=== PATIENT | female | born 1990 | race Caucasian/White ===

== ENCOUNTER 2023-04-07 16:02 | Emergency (ER) | payer OTHER, SELFPAY ==
[2023-04-07 16:21] VITALS: BP 125/75; PULSE 96; RESP 20; TEMP 36.7; O2SAT 96; BMI 35.6
--- NOTE | 2023-04-07 18:29 | ED_ITS ---
Documented by User: Sherry Shaffer 04/07/23 21:01 HPI - Female Genitourinary General Chief complaint: Urogenital-Female Stated complaint: UTI Time Seen by Provider: 04/07/23 16:36 Source: patient Mode of arrival: walk-in Limitations: no limitations History of Present Illness HPI Narrative: 33 year old female presents to the ED for vaginal irritation. States her sexual partner has been having penile discharge. Pt denies fever, chills, abd pain. Denies vaginal discharge, dysuria, vaginal lesions/rash. Denies pain. Related Data Home Medications Medication Instructions Recorded Confirmed No Known Home Medications 04/07/23 04/07/23 Allergies Allergy/AdvReac Type Severity Reaction Status Date / Time No Known Drug Allergies Allergy Verified 04/07/23 16:20 Review of Systems ROS Constitutional Denies: fever or chills Gastrointestinal Denies: abdominal pain, nausea or vomiting Genitourinary Reports: other (vaginal irritation); Denies: painful urination, urinary frequency, urinary urgency, blood in urine, pelvic pain, vaginal bleeding, vaginal discharge, genital lesion, genital itching or vaginal odor Musculoskeletal Denies: back pain Integumentary/Breast Denies: rash or itching PFSH PFSH Social History Smoking status: Heavy tobacco smoker Exam Constitutional Vital Signs, click to edit/add: Last Vital Signs Temp 98.1 F 04/07/23 16:21 Pulse 96 H 04/07/23 16:21 Resp 20 04/07/23 16:21 BP 125/75 04/07/23 16:21 Pulse Ox 96 04/07/23 16:21 O2 Del Method Room Air 04/07/23 16:21 Common normals: no apparent distress and oriented x3 Eye Common normals: conjunctivae normal and no scleral icterus Neck & C-Spine Common normals: supple Chest Chest: symmetrical chest wall rise Respiratory Effort & inspection: able to speak in complete sentences and symmetric chest movement GI Common normals: Normal to inspection, nondistended, normoactive bowel sounds present External Female Exam: normal appearance of the urethra Speculum exam - vagina: vaginal discharge (Minimal, white); no vaginal erythema, no foreign body in vagina, no vaginal lesion, no vaginal bleeding and no vaginal tenderness Speculum exam - cervix: no cervical tenderness Bimanual exam- vagina & uterus: no cervical motion tenderness 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 Neuro Common normals: oriented x3 Sensorium/orientation: awake and alert Course Vital Signs Vital signs: Vital Signs Temperature 98.1 F 04/07/23 16:21 Pulse Rate 96 H 04/07/23 16:21 Respiratory Rate 20 04/07/23 16:21 Blood Pressure 125/75 04/07/23 16:21 Pulse Oximetry 96 04/07/23 16:21 Oxygen Delivery Method Room Air 04/07/23 16:21 Temperature 98.1 F 04/07/23 16:21 Pulse Rate 96 H 04/07/23 16:21 Respiratory Rate 20 04/07/23 16:21 Blood Pressure 125/75 04/07/23 16:21 Pulse Oximetry 96 04/07/23 16:21 Oxygen Delivery Method Room Air 04/07/23 16:21 MDM - Female Genitourinary MDM Narrative Medical decision making narrative: Urinalysis was unremarkable. Pelvic swabs were pending. She was medicated with Rocephin and Zithromax here. Follow up with pcp for a recheck, further evaluation and treatment. Differential Diagnosis Differential diagnosis: Likely urinary tract infection, bacterial vaginosis, trichomoniasis, vaginitis and other (Gonorrhea, chlamydia) Medical Records Attestation: I reviewed the patient's medical records. Lab Data Attestation: I reviewed the patient's lab results. Labs: Lab Results 04/07/23 Range/Units 18:34 Urine Color Lt. yellow (YELLOW) Urine Clarity Clear (CLEAR) Urine pH 5.5 (5.0-9.0) Ur Specific [place] 1.025 (1.005-1.025) Urine Protein Negative (NEG/TRACE) mg/dL Urine Glucose (UA) Negative (NEGATIVE) mg/dL Urine Ketones Negative (NEGATIVE) mg/dL Urine Occult Blood Negative (NEGATIVE) Urine Nitrite Negative (NEGATIVE) Urine Bilirubin Negative (NEGATIVE) Urine Urobilinogen 0.2 (0.2-1.0) EU/dL Ur Leukocyte Esterase Negative (NEGATIVE) Urine HCG, Qual Negative (NEGATIVE) Discharge Plan Discharge Chief Complaint: Urogenital-Female Clinical Impression: Concern about STD in female without diagnosis Patient Disposition: Home, Self-Care Time of Disposition Decision: 19:58 Condition: Good Mode of Transportation: Private Vehicle Prescriptions / Home Meds: No Action No Known Home Medications Instructions: Sexually Transmitted Diseases (ED), Safe Sex Practices (ED) Stand Alone Forms: Portal Instructions Referrals: Physician,Non-Staff, [Primary Care Provider] - 1 week Discharge Date/Time: 04/07/23 20:32 Documented by User: Rell Cabrera MD 04/08/23 15:10 HPI - Female Genitourinary General Chief complaint: Urogenital-Female Stated complaint: UTI Time Seen by Provider: 04/07/23 16:36 Related Data Home Medications Medication Instructions Recorded Confirmed No Known Home Medications 04/07/23 04/07/23 Allergies Allergy/AdvReac Type Severity Reaction Status Date / Time No Known Drug Allergies Allergy Verified 04/07/23 16:20 PFSH PFSH Social History Smoking status: Heavy tobacco smoker Exam Constitutional Vital Signs, click to edit/add: Last Vital Signs Temp 98.1 F 04/07/23 16:21 Pulse 96 H 04/07/23 16:21 Resp 20 04/07/23 16:21 BP 125/75 04/07/23 16:21 Pulse Ox 96 04/07/23 16:21 O2 Del Method Room Air 04/07/23 16:21 Course Vital Signs Vital signs: Vital Signs Temperature 98.1 F 04/07/23 16:21 Pulse Rate 96 H 04/07/23 16:21 Respiratory Rate 20 04/07/23 16:21 Blood Pressure 125/75 04/07/23 16:21 Pulse Oximetry 96 04/07/23 16:21 Oxygen Delivery Method Room Air 04/07/23 16:21 Temperature 98.1 F 04/07/23 16:21 Pulse Rate 96 H 04/07/23 16:21 Respiratory Rate 20 04/07/23 16:21 Blood Pressure 125/75 04/07/23 16:21 Pulse Oximetry 96 04/07/23 16:21 Oxygen Delivery Method Room Air 04/07/23 16:21 MDM - Female Genitourinary MDM Narrative Medical decision making narrative: Urinalysis was unremarkable. Pelvic swabs were pending. She was medicated with Rocephin and Zithromax here. Follow up with pcp for a recheck, further evaluation and treatment. I, Dr Cabrera, have reviewed the above progress note and course of action in the ER; agree with the above. I have personally seen and evaluated this patient, gone over history and physical, and discussed disposition and treatment plan with the patient. Lab Data Labs: Lab Results 04/07/23 Range/Units 18:34 Urine Color Lt. yellow (YELLOW) Urine Clarity Clear (CLEAR) Urine pH 5.5 (5.0-9.0) Ur Specific [place] 1.025 (1.005-1.025) Urine Protein Negative (NEG/TRACE) mg/dL Urine Glucose (UA) Negative (NEGATIVE) mg/dL Urine Ketones Negative (NEGATIVE) mg/dL Urine Occult Blood Negative (NEGATIVE) Urine Nitrite Negative (NEGATIVE) Urine Bilirubin Negative (NEGATIVE) Urine Urobilinogen 0.2 (0.2-1.0) EU/dL Ur Leukocyte Esterase Negative (NEGATIVE) Urine HCG, Qual Negative (NEGATIVE) Discharge Plan Discharge Chief Complaint: Urogenital-Female Clinical Impression: Concern about STD in female without diagnosis Patient Disposition: Home, Self-Care Time of Disposition Decision: 19:58 Condition: Good Mode of Transportation: Private Vehicle Prescriptions / Home Meds: No Action No Known Home Medications Instructions: Sexually Transmitted Diseases (ED), Safe Sex Practices (ED) Stand Alone Forms: Portal Instructions Referrals: Physician,Non-Staff, MD [Primary Care Provider] - 1 week Discharge Date/Time: 04/07/23 20:32
[2023-04-07 18:49] LABS: Bilirubin Urine NEGATIVE (NEGATIVE); Blood Urine NEGATIVE (NEGATIVE); Clarity Urine CLEAR (CLEAR); Color Urine LT. YELLOW (YELLOW); Glucose Urine UA NEGATIVE (NEGATIVE); Ketones Urine NEGATIVE (NEGATIVE); Leukocyte Esterase Urine NEGATIVE (NEGATIVE); Nitrite Urine NEGATIVE (NEGATIVE); Protein Urine NEGATIVE (NEG/TRACE); Specific Gravity Urine 1.025 (1.005-1.025); Urobilinogen Urine 0.2 EU/dL (0.2-1.0); pH Urine 5.5 (5.0-9.0)
[2023-04-07 18:50] LABS: Urine Microscopic Indicated NO
[2023-04-07 18:51] LABS: HCG Qualitative Urine* NEGATIVE (NEGATIVE)
[2023-04-07] MEDS: AZITHROMYCIN 250 MG TABLET 1000 MG PO (20:23)
[2023-04-07] MEDS: CEFTRIAXONE 500 MG, WATER FOR INJECTION,STERILE 1 ML IM (20:23)
[2023-04-09 15:08] LABS: Candida species Negative (Negative); Gardnerella vaginalis Negative (Negative); Trichomonas vaginalis Negative (Negative)
[2023-04-09 22:06] LABS: Neisseria gonorrhoeae, NAA Negative (Negative)
== END 2023-04-07 20:32 | disposition home or self-care (01) ==
PROVIDERS: Nurse Practitioner Family; Emergency Provider Emergency Medicine
DX: Z20.2 Contact with and (suspected) exposure to infections with a predominantly sexual mode of transmission (principal); N89.8 Other specified noninflammatory disorders of vagina; F17.200 Nicotine dependence, unspecified, uncomplicated
CPT/HCPCS: 81003; 84703; 87210; 87480; 87491; 87510; 87591; 87660; 99283; J0696